=== PATIENT | female | born 1950 | race Caucasian/White ===

== ENCOUNTER → 2024-03-05 10:55 | Outpatient (CLI) | payer OTHER, SELFPAY ==
--- NOTE | 2024-03-05 11:18 | EKG_ITS ---
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
== END ==
PROVIDERS: PCP Internal Medicine; Referring Provider Orthopaedic Surgery Foot and Ankle Surgery; Visit Provider Orthopaedic Surgery Foot and Ankle Surgery
DX: Z01.818 Encounter for other preprocedural examination (principal)
CPT/HCPCS: 93005; 93010